=== PATIENT | female | born 1945 | race Caucasian/White ===

== ENCOUNTER → 2024-08-16 09:48 | Outpatient (BNVA) | payer MEDICARE, SELFPAY | PROVIDERS: Referring Provider Family Medicine; Visit Provider Psychiatry & Neurology Neurology | DX: G45.9 Transient cerebral ischemic attack, unspecified (principal); G20.A1 Parkinson's disease without dyskinesia, without mention of fluctuations; I63.9 Cerebral infarction, unspecified; R29.2 Abnormal reflex; G43.919 Migraine, unspecified, intractable, without status migrainosus; G44.81 Hypnic headache | CPT/HCPCS: 99203; 99204 ==

== ENCOUNTER 2024-08-24 10:26 | Outpatient (CLI) | payer MEDICARE, SELFPAY ==
--- NOTE | 2024-08-24 10:30 | USCV_ITS ---
Ree Malhotra Age: 79 Gender: F : 1945 Exam Date: 08/24/2024 10:46 Ordering Phys: Curly Hdez MD Technologist: [employer] Exam Location: [facility] [place]: headaches Risk Factors: Previous Vascular Surgery: Right Brachial BP: / Left Brachial BP: / Right Left Velocity (cm/s) Spectral Plaque Velocity (cm/s) Spectral Plaque Syst/Diast Broadening Syst/Diast Broadening 85.90/ 21.10 Prox CCA 84.80 / 17.50 106.10/22.80 Mid CCA 104.10/ 28.00 114.30/25.20 Distal CCA 73.60 / 23.70 73.60/ 26.80 Prox ICA 64.40 / 17.00 69.90/ 23.40 Mid ICA 57.90 / 16.60 71.30/ 24.20 Distal ICA 73.70 / 21.50 65.60 ECA 55.10 0.60 ICA/CCA 1.00 Antegrade Vertebral Antegrade 46.00/ 12.00 cm/s 17.30/ 3.80 cm/s Tri Subclavian Tri 55.00 58.00 CONCLUSIONS Right ICA stenosis <50%. Mild atheromatous plaque right carotid bulb/ICA. Left ICA stenosis <50%. Mild atheromatous plaque left carotid bulb/ICA. Normal antegrade Doppler flow noted in the right vertebral artery. Normal antegrade Doppler flow noted in the left vertebral artery. Aj Valentin MD (Electronically Signed) Final Date: 24 August 2024 15:34 S
--- NOTE | 2024-08-24 11:00 | MR_ITS ---
WS: [id number] MRI HEAD WITH CONTRAST TECHNIQUE: Sagittal T1, T2 axial, T2 axial FLAIR, axial susceptibility weighted imaging, axial diffus ion weighted images, and coronal T2 images were obtained. Pre and post-T1 axial and post T1 coronal i mages. ADC and FSPGR images. CLINICAL INFORMATION: G45.9 - Transient cerebral ischemic attack, unspecified COMPARISON: None. FINDINGS: No evidence of restricted diffusion to suggest acute ischemia. Ventricular system and basal cisterns are patent. Moderate small vessel changes. Moderate parenchymal volume loss. Normal vascular flow vo ids at the skull base. No extra-axial fluid collections. Paranasal sinuses are well aerated. Mucosal thickening LEFT mastoid air cells. T2 hyperintense lesion along the posterior RIGHT parotid gland juan f suring 12 mm. This can be further evaluated with contrast-enhanced neck CT. Tiny chronic lacunar infa rct LEFT cerebellum. No hemosiderin on the susceptibility weighted images. Normal optic chiasm and pituitary infundibulum No abnormal gadolinium enhancement. Normal dural venous sinuses. MR/MR head wo/w con [id number] IMPRESSION: 1. No evidence of restricted diffusion to suggest acute ischemia. 2. Moderate small vessel changes with moderate parenchymal volume loss. 3. No hemosiderin on the susceptibly weighted images. 4. No abnormal gadolinium enhancement. 5. T2 hyperintense nodule in the posterior RIGHT parotid lobe measuring 12 mm. This could be further evaluated with ultrasound and/or contrast-enhanced CT ne ck. 6. Partial opacification LEFT mastoid air cells. 7. Tiny chronic lacunar infarct LEFT cerebellum.
[2024-08-24] MEDS: gadobenate dimeglumine 20 mL vial 10 ML IV (12:05)
== END 2024-08-24 10:27 | disposition home or self-care (01) ==
LOC: RAD 10:28
PROVIDERS: PCP Family Medicine; Visit Provider Psychiatry & Neurology Neurology
DX: I63.542 Cerebral infarction due to unspecified occlusion or stenosis of left cerebellar artery (principal); D37.030 Neoplasm of uncertain behavior of the parotid salivary glands; H70.92 Unspecified mastoiditis, left ear; G20.A1 Parkinson's disease without dyskinesia, without mention of fluctuations
CPT/HCPCS: 70553; 93880

== ENCOUNTER → 2024-12-28 13:17 | Outpatient (BNVA) | payer MEDICARE, SELFPAY | PROVIDERS: PCP Family Medicine; Visit Provider Psychiatry & Neurology Neurology | DX: G20.A1 Parkinson's disease without dyskinesia, without mention of fluctuations (principal) | CPT/HCPCS: 99212 ==

== ENCOUNTER → 2025-06-19 13:43 | Outpatient (BNVA) | payer MEDICARE, SELFPAY | PROVIDERS: PCP Family Medicine; Referring Provider Family Medicine; Visit Provider Nurse Practitioner | DX: G20.A1 Parkinson's disease without dyskinesia, without mention of fluctuations (principal); G44.81 Hypnic headache | CPT/HCPCS: 99214 ==